=== PATIENT | female | born 1950 | race Two or more races ===

== ENCOUNTER 2023-04-10 12:27 | Emergency (ER) | payer OTHER ==
[~2023-04-10] VITALS: Ht 162.6 cm; Wt 58.9 kg
[2023-04-10 12:59] LABS: Basophils # (auto) 0 10 ^3/uL (0-0.2); Basophils % (auto) 0.5 % (0.0-2.0); Eosinophils # (auto) 0.1 10 ^3/uL (0-0.8); Eosinophils % (auto) 1.1 % (0.0-7.0); Hematocrit 39.6 % (36.0-46.0); Hemoglobin 13.1 g/dL (12.2-16.2); Lymphocytes # (auto) 3.7 10 ^3/uL (0.4-5.4); Mean Corpuscular Hemoglobin 30.9 pg (28.0-32.0); Mean Corpuscular Volume 93.7 fL (80.0-100.0); Monocytes # (auto) 0.4 10 ^3/uL (0-1.3); Monocytes % (auto) 4.7 % (0.0-12.0); Neutrophils # (auto) 4.2 10 ^3/uL (1.6-8.6); Neutrophils % (auto) 49.7 % (37.0-80.0); Nucleated Red Blood Cells % 0.1 %; Red Blood Cells 4.23 10^6/uL (4.0-5.20); Red Cell Distribution Width 13.3 % (11.8-14.3); White Blood Cell 8.4 10^3/uL (4.4-10.8)
[2023-04-10 14:22] LABS: Alanine Aminotransferase 19 U/L (7-40); Albumin 4.4 g/dL (3.2-4.8); Alkaline Phosphatase 73 U/L (46-116); Anion Gap 13 (5-15); Aspartate Aminotransferase 20 U/L (13-40); BUN/Creatinine Ratio 18.6 (10.0-20.0); Bilirubin, Total 0.9 mg/dL (0.2-1.0); Blood Urea Nitrogen 13 mg/dL (9-23); Calcium 9.2 mg/dL (8.5-10.1); Carbon Dioxide 21 mmol/L (20-30); Chloride 105 mmol/L (98-107); Glucose 205 mg/dL (74-106); Potassium 3.6 mmol/L (3.5-5.1); Sodium 139 mmol/L (136-145)
[2023-04-10] MEDS ORDERED: ONDANSETRON ODT 4 MG TAB PO ONE (17:30)
[2023-04-10] MEDS ORDERED: MECLIZINE HCL 25 MG TAB PO ONE (17:30)
[2023-04-10 18:19] VITALS: BP 125/61; PULSE 92; RESP 18; TEMP 97.6; O2SAT 95
== END 2023-04-10 18:32 | disposition left against medical advice (07) ==
LOC: ER 12:27
DX: R42 Dizziness and giddiness (principal); R53.1 Weakness; R41.82 Altered mental status, unspecified; E11.9 Type 2 diabetes mellitus without complications
CPT/HCPCS: 36415; 70450; 71045; 80053; 84484; 85025; 93005; 99285; J8597; Q0162

== ENCOUNTER 2025-04-02 18:06 | Emergency (ER) | payer OTHER ==
[~2025-04-02] VITALS: Ht 165.1 cm; Wt 67.0 kg
--- NOTE | 2025-04-02 20:26 | DVH ---
CLINICAL INDICATION: right shoudler pain TECHNIQUE: 4 radiographic views of the right shoulder were obtained. Comparison: None FINDINGS/IMPRESSION: No fractures or dislocations. Right clavicle appears intact. Cystic deformity to the greater tuberosity of the proximal right humerus. May represent sequela from previous dislocation correlate with clinical history.
[2025-04-02] MEDS ORDERED: ACET500T58 PO (22:17)
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
[2025-04-02 22:18] VITALS: BP 168/66; PULSE 73; RESP 14; TEMP 98.5; O2SAT 98
[2025-04-02] MEDS: IBUPROFEN 800 MG TAB PO ONE (22:23)
== END 2025-04-02 22:28 | disposition home or self-care (01) ==
LOC: EDBD 18:06 → ER 18:09
DX: S46.911A Strain of unspecified muscle, fascia and tendon at shoulder and upper arm level, right arm, initial encounter (principal); E11.9 Type 2 diabetes mellitus without complications; W22.8XXA Striking against or struck by other objects, initial encounter; Y93.89 Activity, other specified; Y92.89 Other specified places as the place of occurrence of the external cause; Y99.8 Other external cause status
CPT/HCPCS: 73030